=== PATIENT | male | born 1955 | race Caucasian/White ===

== ENCOUNTER → 2018-02-22 11:32 | Outpatient (CLI) | payer MEDICARE, SELFPAY ==
[2018-02-22 12:40] LABS: Hemoglobin A1C% w Est Avg Glu 5.8 % (4.0-6.0)
== END ==
PROVIDERS: PCP Family Medicine; Visit Provider Family Medicine
DX: E34.9 Endocrine disorder, unspecified (principal)
CPT/HCPCS: 36415; 83036; 84403

== ENCOUNTER 2018-07-17 12:54 | Emergency (ER) | payer MEDICARE, SELFPAY ==
[2018-07-17 13:10] VITALS: BP 151/81; PULSE 84; RESP 20; TEMP 37; O2SAT 96; BMI 37.3
--- NOTE | 2018-07-17 13:14 | DI.RAD.S_ITS ---
PROCEDURE: XR ANKLE LT MIN 3V INDICATIONS: injury, pain TECHNIQUE: 3 views of the ankle were acquired. COMPARISON: None. FINDINGS: Bones: No fractures or dislocations. Ankle mortise is normally aligned. No suspicious bony lesions. Soft tissues: No tibiotalar joint effusion. Achilles tendon appears normal. IMPRESSION: 1. No fracture or subluxation. Dictated by: Ismael Molina M.D. on 07/17/2018 at 13:42 Approved by: Ismael Molina M.D. on 07/17/2018 at 13:43
--- NOTE | 2018-07-17 15:20 | ED.LOWEXIN ---
HPI - Extremity Injury (Lower) <BRYAN Anderson - Last Filed: 07/17/18 22:18> General Chief Complaint: Extremity Injury, Lower Stated Complaint: states possible broken left ankle Time Seen by Provider: 07/17/18 14:53 Source: patient Mode of arrival: ambulatory Limitations: no limitations History of Present Illness HPI Narrative: 63-year-old male with history of chronic back pain that is a former smoker here for complaint of left ankle pain. He states that he was carrying a box when he stumbled over another box yesterday. He denies any direct trauma to the ankle. He states that he rolled his ankle while he stumbled. Reports increased pain last night while he was sleeping. He is ambulatory into the emergency room today. He denies any head injury. He denies any other injuries no other concerns or complaints at this timeframe. Related Data Home Medications Medication Instructions Recorded Confirmed MULTIVITAMIN (#THERAPEUTIC 1 cap PO QDAY #0 11/12/10 04/20/18 VITAMINS) Previous Rx's Medication Instructions Recorded bupropion HCl [Wellbutrin SR] 150 mg PO BID #180 tab 04/18/18 sildenafil (antihypertensive) 0 PO PRN #100 tab 05/17/18 [Revatio] testosterone cypionate 400 mg IM SEE INSTRUCTIONS #1 ml 06/06/18 [Depo-Testosterone] levothyroxine 100 mcg PO QAM #90 tab 06/24/18 losartan [Cozaar] 50 mg PO QDAY #90 tab 06/24/18 tamsulosin [Flomax] 0 PO QDAY #180 cap 06/24/18 acyclovir [Zovirax] 200 mg PO 5XD #50 cap 06/28/18 morphine 30 mg immediate release 30 mg PO Q6H PRN #120 tab 07/13/18 tablet morphine ER 60 mg tablet,extended See Label Instructions PO BID #120 07/13/18 release tab Allergies Allergy/AdvReac Type Severity Reaction Status Date / Time adhesive [ADHESIVE] Allergy Intermediate PAPER Verified 04/20/18 14:01 TAPE, RASH diclofenac [DICLOFENAC] Allergy Intermediate RED, ITCHY Verified 04/20/18 14:01 WELT benzalkonium chloride Allergy Mild RASH Verified 04/20/18 14:01 [From MERTHIOLATE (BENZALKONIUM)] tetracaine [TETRACAINE] Allergy Mild RASH Verified 04/20/18 14:01 tranilast [TRANILAST] Allergy Mild RASH Verified 04/20/18 14:01 triamcinolone [TRIAMCINOLONE] Allergy Mild RASH Verified 04/20/18 14:01 DMSO Allergy Mild RASH Uncoded 04/20/18 14:01 Review of Systems <BRYAN Anderson - Last Filed: 07/17/18 22:18> Constitutional Denies chills, Denies fever(s), Denies lethargy and Denies weakness Eyes Denies change in vision, Denies eye discharge, Denies irritation and Denies loss of vision ENT Ears, Nose, Mouth, and Throat: Denies change in voice, Denies neck pain and Denies sore throat Cardiovascular Denies chest pain, Denies irregular heart rhythm, Denies lightheadedness, Denies palpitations, Denies dyspnea, Denies dyspnea on exertion and Denies orthopnea Respiratory Denies cough, Denies dyspnea, Denies dyspnea on exertion and Denies wheezing Gastrointestinal Gastrointestinal: Denies abdominal pain, Denies change in bowel habits, Denies diarrhea, Denies nausea and Denies vomiting Genitourinary Denies hematuria, Denies flank pain, Denies urinary incontinence and Denies urinary urgency Musculoskeletal Denies neck pain Comments: Left ankle pain Integumentary/Breasts Denies pruritus, Denies erythema, Denies rash and Denies wounds Neurologic Denies confusion, Denies loss of vision and Denies weakness Psychiatric Denies anxiety, Denies confusion, Denies depression, Denies homicidal ideation and Denies suicidal ideation Endocrine Denies palpitations Hematologic/Lymphatic Denies easy bruising Allergic/Immunologic Denies wheezing Exam <BRYAN Anderson - Last Filed: 07/17/18 22:18> Initial Vital Signs Initial Vital Signs: Vital Signs Temperature 98.6 F 07/17/18 13:10 Pulse Rate 84 07/17/18 13:10 Respiratory Rate 20 07/17/18 13:10 Blood Pressure 151/81 H 07/17/18 13:10 Pulse Oximetry 96 07/17/18 13:10 Const General: cooperative and well developed Nutritional Appearance: well nourished Orientation: alert, awake, oriented x3 and not confused HENMT Mouth: oral mucosae normal and moist mucous membranes Eyes Conjunctivae: conjunctivae normal Sclera: sclerae normal Pupils: PERRL EOM: EOM intact bilaterally Chest Chest: normal inspection of the chest Resp Effort & Inspection: normal respiratory effort, able to speak in complete sentences, no respiratory distress and no use of accessory muscles Auscultation: clear to auscultation bilaterally, no rales, no rhonchi and no wheezes Cardio Rate: regular rate Rhythm: regular rhythm Heart Sounds: no click, no gallops, no murmurs and no rubs Pulses: normal peripheral pulses Skin General: no rashes or lesions noted, No jaundice and No petechiae Neuro General: alert, oriented x3, gait normal and no focal motor deficits Speech: speech normal Extrem Other: Left ankle with slight swelling. No deformities. Slight abrasion to the anterior portion of the ankle. Distal sensation is intact. Distal pulses are intact. Distal range of motion is intact. <Ching Kelley MD - Last Filed: 07/18/18 14:11> Initial Vital Signs Initial Vital Signs: Vital Signs Temperature 98.6 F 07/17/18 13:10 Pulse Rate 84 07/17/18 13:10 Respiratory Rate 20 07/17/18 13:10 Blood Pressure 151/81 H 07/17/18 13:10 Pulse Oximetry 96 07/17/18 13:10 Course <BRYAN Anderson - Last Filed: 07/17/18 22:18> Orders Ordered: ED Orders 07/17/18 13:14 XR ankle LT min 3V Stat Vital Signs - 8 hr 07/17/18 13:10 Temperature 98.6 F Pulse Rate 84 Respiratory Rate 20 Blood Pressure 151/81 H Pulse Oximetry 96 <Ching Kelley MD - Last Filed: 07/18/18 14:11> Orders Ordered: ED Orders 07/17/18 13:14 XR ankle LT min 3V Stat Vital Signs - 8 hr 07/17/18 13:10 Temperature 98.6 F Pulse Rate 84 Respiratory Rate 20 Blood Pressure 151/81 H Pulse Oximetry 96 MDM - Extremity Injury (Lower) <BRYAN Anderson - Last Filed: 07/17/18 22:18> Imaging Data Left ankle : Radiologist's impression: [address] [address] XRay Report Signed Patient: Avtar Vyas MR#: [id number] : 1955 Acct:[id number] Age/Sex: 63 / M Date of Service: 07/17/18 Loc: ED Accession Number: [id number] Procedure: XR ankle LT min 3V Ordering Provider: Ching Kelley MD PROCEDURE: XR ANKLE LT MIN 3V INDICATIONS: injury, pain TECHNIQUE: 3 views of the ankle were acquired. COMPARISON: None. FINDINGS: Bones: No fractures or dislocations. Ankle mortise is normally aligned. No suspicious bony lesions. Soft tissues: No tibiotalar joint effusion. Achilles tendon appears normal. IMPRESSION: 1. No fracture or subluxation. Dictated by: Ismael Molina M.D. on 07/17/2018 at 13:42 Approved by: Ismael Molina M.D. on 07/17/2018 at 13:43 [facility] Narrative Medical decision making narrative: X-ray the left ankle was obtained was negative for any acute fractures or dislocations. Signs and symptoms presents as sprain to the left ankle. He is placed in a gel splint for comfort and support. [id number]-fopsbef ibuprofen as needed for any discomfort. Ice and elevation help with any swelling. Follow up with primary care provider in 1 week for re-evaluation. For any worsening symptoms return to the emergency room. Discharge Plan Departure Patient Disposition: Home Clinical Impression: Left ankle sprain Discharge Date/Time: 07/17/18 15:41 Interventions: ED Discharge Assessment Last Done: 07/17/18 15:41 Instructions: DI for Ankle Sprain Activity Restrictions/Additional Instructions: X-ray the left ankle was obtained was negative for any acute fractures or dislocations. Signs and symptoms presents as sprain to the left ankle. UR placed in a splint for comfort and support use as directed. Uigu-irs-[id number] ibuprofen as needed for any discomfort. Ice and elevation help with any swelling. Follow up with primary care provider in 1 week for re-evaluation. For any worsening symptoms return to the emergency room. Prescriptions: No Action MULTIVITAMIN (#THERAPEUTIC VITAMINS) 1 cap PO QDAY Qty: 0 RF: 0 bupropion HCl [Wellbutrin SR] 150 mg tablet extended release 12 hr 150 mg PO BID Qty: 180 RF: 1 sildenafil (antihypertensive) [Revatio] 20 mg tablet PO PRN Qty: 100 RF: 5 tamsulosin [Flomax] 0.4 mg capsule PO QDAY Qty: 180 RF: 2 levothyroxine 100 mcg tablet 100 mcg PO QAM Qty: 90 RF: 2 losartan [Cozaar] 50 mg tablet 50 mg PO QDAY Qty: 90 RF: 2 acyclovir [Zovirax] 200 mg capsule 200 mg PO 5XD Qty: 50 RF: 3 morphine 30 mg tablet 30 mg PO Q6H PRN (Reason: pain) Qty: 120 RF: 0 morphine [MS Contin] 60 mg tablet extended release See Label Instructions PO BID Qty: 120 RF: 0 testosterone cypionate [Depo-Testosterone] 200 mg/mL oil 400 mg IM SEE INSTRUCTIONS Qty: 1 RF: 0 Referrals: Chan Covington MD [Primary Care Provider] -
== END 2018-07-17 15:41 | disposition home or self-care (01) ==
PROVIDERS: Emergency Provider Nurse Practitioner Family; PCP Family Medicine
DX: S93.402A Sprain of unspecified ligament of left ankle, initial encounter (principal); W19.XXXA Unspecified fall, initial encounter
CPT/HCPCS: 29540; 73610; 99282; 99283

== ENCOUNTER → 2018-07-27 12:12 | Outpatient (CLI) | payer MEDICARE, SELFPAY | PROVIDERS: PCP Family Medicine; Visit Provider Family Medicine | DX: S91.002A Unspecified open wound, left ankle, initial encounter (principal) | CPT/HCPCS: 87070; 87205 ==

== ENCOUNTER → 2018-08-05 10:23 | Outpatient (CLI) | payer MEDICARE, SELFPAY | PROVIDERS: PCP Family Medicine; Visit Provider Family Medicine | DX: E34.9 Endocrine disorder, unspecified (principal) | CPT/HCPCS: 36415; 84403 ==

== ENCOUNTER → 2018-12-07 14:15 | Outpatient (CLI) | payer MEDICARE, SELFPAY | PROVIDERS: PCP Family Medicine; Visit Provider Family Medicine | DX: E34.9 Endocrine disorder, unspecified (principal) | CPT/HCPCS: 36415; 84403 ==

== ENCOUNTER → 2019-01-10 11:07 | Outpatient (CLI) | payer MEDICARE, SELFPAY ==
[2019-01-10 12:19] LABS: BUN Creatinine Ratio 15.7 (6-22); Blood Urea Nitrogen 11 mg/dL (9-20); Calcium 9.2 mg/dL (8.4-10.2); Carbon Dioxide 32 mmol/L (22-32); Chloride 99 mmol/L (98-107); Cholesterol 167 mg/dL (140-199); Estimated Glomerular Filt Rate > 60.0 mL/min (>60); Glucose 144 mg/dL (80-110); HDL Cholesterol 47 mg/dL (40-60); HEMOLYSIS < 15 (0-50); LDL Cholesterol Calculated 103 mg/dL (<100); Potassium 4.7 mmol/L (3.4-5.1); Sodium 139 mmol/L (137-145); Triglycerides 84 mg/dL (35-150)
== END ==
PROVIDERS: Family Provider Family Medicine; PCP Family Medicine; Visit Provider Internal Medicine Cardiovascular Disease
DX: Z00.00 Encounter for general adult medical examination without abnormal findings (principal); I50.9 Heart failure, unspecified
CPT/HCPCS: 36415; 80048; 80061

== ENCOUNTER → 2019-02-27 15:56 | Outpatient (CLI) | payer MEDICARE, SELFPAY ==
--- NOTE | 2019-02-27 | DI.ECHO.S_ITS ---
[facility] +---------+ : : [address] : : : : [id number] : : : : Phone: [phone] Echocardiogram Report + + :Name: CARROL CHEATHAM Study Date: 02/27/2019 Height: 72 in : :[facility] Weight: 269 lb : : Gender: Male BSA: 2.4 m2 : :: 1955 Age: 64 yrs BP: 154/74 mmHg: :Reason For Study: Congestive Heart Failure : :Ordering Physician: Wendie : :Alesia Casper Performed By: Wanda Perla : :Referring: Dr. Chan Covington : + + Interpretation Summary 1) Nnormal left ventricular size with normal systolic function (EF 50-55%). 2) Grossly, normal right ventricular size with normal systolic function. 3) No significant valvular abnormalities. 4) Compared to the Echo done 01/01/2017, LVEF has improved from 50-55% to 55- 60% on this study. Procedure: A two-dimensional transthoracic echocardiogram with color flow and Doppler was performed. The study quality was technically difficult. 1.5 cc of Definity contrast was used to improve image quality. Comparison is made with the echocardiogram of 01-01-17. The patient was in normal sinus rhythm during the exam. Left Ventricle: The left ventricle is normal in size. There is mild asymmetric left ventricular hypertrophy. The ejection fraction is estimated to be 55-60%. Diastolic parameters suggest a relaxation abnormality of the left ventricle, consistent with probable normal filling pressures. Right Ventricle: The right ventricle grossly appears normal in size with probable normal systolic function. Atria: The left atrium is mildly dilated. Right atrial size is normal. The interatrial septum is intact with no evidence for an atrial septal defect. Mitral Valve: The mitral valve is normal in structure and function. There is trace mitral regurgitation. Aortic Valve: The aortic valve is trileaflet. The aortic valve opens well. There is no aortic valve stenosis. No aortic regurgitation is present. Tricuspid Valve: The tricuspid valve is normal in structure and function. There is a trace or physiologic amount of tricuspid regurgitation. The right ventricular systolic pressure is estimated to be at least 29 mmHg based on an estimated right atrial pressure of 3 mm Hg. Pulmonic Valve: The pulmonic valve is normal in structure and function. There is trace pulmonic regurgitation. Great Vessels: The aortic root is normal size. The ascending aorta is at the upper limits of normal in size. The aortic arch is at the upper limits of normal in size. The IVC is of normal diameter and collapses greater than 50% with a sniff. This suggests a low right atrial pressure of 3 mm Hg. Pericardium/ Pleura There is no pericardial effusion. There is no pleural effusion. MMode/2D Measurements & Calculations LVIDd: 5.3 cm Ao root diam: 3.7 cm LVIDs: 3.7 cm Aortic Jxn: 2.7 cm FS: 30.1 % asc Aorta Diam: 3.9 cm EPSS: 0.60 cm Ao Arch Diam (Prox Trans): 3.5 cm IVSd: 1.2 cm LVPWd: 0.58 cm LV crowell. diameter/BSA (cm/m^2): 2.2 LV sys. diameter/BSA (cm/m^2): 1.5 LA dimension: 4.5 cm RA long axis: 5.7 cm LA A2 area: 27.8 cm2 RA area: 22.7 cm2 LA A4 area: 25.7 cm2 RA vol: 76.6 ml LA length (vol): 5.9 cm RA : 31.7 ml/m2 LA vol: 102.1 ml IVC diam: 1.5 cm LA vol index: 42.3 ml/m2 RVDd major: 7.2 cm RVD1 (basal): 3.6 cm RVD2 (mid): 2.5 cm Doppler Measurements & Calculations Ao V2 max: 156.6 cm/sec MV E max troy: 78.6 cm/sec Ao V2 mean: 101.0 cm/sec MV A max troy: 83.2 cm/sec Ao max P.8 mmHg MV E/A: 0.94 Ao mean P.7 mmHg Med Peak E' Troy: 6.3 cm/sec Ao V2 VTI: 34.2 cm E/E' med: 12.4 Lat Peak E' Troy: 8.6 cm/sec E/E' lat: 9.1 E/e' average: 10.8 MV dec time: 0.19 sec MV P1/2t: 56.2 msec TR max troy: 256.2 cm/sec MV P1/2t max troy: 78.2 cm/sec TR max P.2 mmHg MVA(P1/2t): 3.9 cm2 PA V2 max: 101.6 cm/sec PA V2 mean: 63.1 cm/sec PA mean P.0 mmHg PA Accel Time: 0.14 sec Reading Physician:05:27 PM
== END ==
PROVIDERS: Family Provider Family Medicine; PCP Family Medicine; Visit Provider Internal Medicine Cardiovascular Disease
DX: I50.9 Heart failure, unspecified (principal); I34.0 Nonrheumatic mitral (valve) insufficiency; I07.1 Rheumatic tricuspid insufficiency; I37.1 Nonrheumatic pulmonary valve insufficiency
CPT/HCPCS: 93306; Q9957

== ENCOUNTER → 2019-03-20 12:30 | Outpatient (CLI) | payer MEDICARE, SELFPAY ==
[2019-03-20 15:19] LABS: Prostate Specific Antigen Scrn 0.636 ng/mL (0.1-4.0)
== END ==
PROVIDERS: Family Provider Family Medicine; PCP Family Medicine; Visit Provider Family Medicine
DX: E34.9 Endocrine disorder, unspecified (principal); Z12.5 Encounter for screening for malignant neoplasm of prostate
CPT/HCPCS: 36415; 84403; G0103

== ENCOUNTER → 2019-04-04 11:44 | Outpatient (CLI) | payer MEDICARE, SELFPAY ==
--- NOTE | 2019-04-04 11:47 | DI.US.S_ITS ---
PROCEDURE: US ABDOMEN COMPLETE INDICATIONS: ABD PAIN, N/V, HX LAPBAND TECHNIQUE: Real-time scanning was performed of the abdominal and retroperitoneal organs, with image documentation. COMPARISON: [facility], CT, PE STUDY (CTA CHEST), 11/18/2010, 19:54. FINDINGS: Liver: Liver is normal in size and demonstrates coarse echotexture. There are numerous masses in liver with hypoechoic halo. Gallbladder: There is a 3 cm gallstone and gallbladder sludge. No gallbladder wall thickening, pericholecystic fluid or sonographic Pichardo's sign. Biliary ducts: Intrahepatic bile ducts are non-dilated. Extrahepatic bile duct caliber measures 3.6 mm. Normal is 6-7 mm or less in diameter, or 10 mm or less post-cholecystectomy. Pancreas: Not well-visualized due to overlying bowel gas. Spleen: Spleen is normal in size and homogeneous in echotexture. Kidneys: Kidneys are normal in size and echotexture. Right kidney measures 13.5 cm long; left kidney measures 14.1 cm long. No hydronephrosis or nephrolithiasis. No solid masses. Aorta: Visualized aorta is normal in caliber at less than 3 cm. Iliacs: Proximal common iliac arteries are normal in caliber at less than 2.5 cm. IVC: Intrahepatic inferior vena cava is patent. Miscellaneous: No free abdominal fluid. IMPRESSION: 1. There are multiple masses in liver with hypoechoic halo concerning for metastatic disease. Recommend CT with contrast for further evaluation. 2. Liver demonstrates coarse echotexture. This finding may be secondary to chronic liver disease such as hepatitis. Recommend clinical correlation. 3. Cholelithiasis. No ultrasound finding to suggest acute cholecystitis. The preliminary result was connected to [facility] by respiratory therapist assistant. Dictated by: Santa Odom M.D. on 04/04/2019 at 12:40 Approved by: Santa Odom M.D. on 04/04/2019 at 12:48
[2019-04-04 13:38] LABS: Hematocrit 50.5 % (41-53); Hemoglobin 16.7 g/dL (13.5-17.5); Mean Corpuscular HGB Conc 33.1 % (30-36); Mean Corpuscular Hemoglobin 28.1 PG (26-34); Mean Corpuscular Volume 84.9 fL (80-100); Platelet Count 225 X10^3/uL (150-400); Red Blood Cell Count 5.95 X10^6/uL (4.5-5.9); White Blood Cell Count 8.2 X10^3/uL (4.5-11.0)
[2019-04-04 14:04] LABS: Alanine Aminotransferase 28 IU/L (21-72); Albumin 4.1 g/dL (3.5-5.0); Albumin Globulin Ratio 1.5 (1.0-2.8); Alkaline Phosphatase 64 U/L (38-126); Amylase 51 U/L (30-110); Aspartate Aminotransferase 28 IU/L (17-59); BUN Creatinine Ratio 14.3 (6-22); Blood Urea Nitrogen 10 mg/dL (9-20); Calcium 9.5 mg/dL (8.4-10.2); Carbon Dioxide 25 mmol/L (22-32); Chloride 100 mmol/L (98-107); Estimated Glomerular Filt Rate > 60.0 mL/min (>60); Globulin 2.8 g/dL (1.7-4.1); Glucose 124 mg/dL (80-110); HEMOLYSIS < 15 (0-50); Lipase 36 U/L (23-300); Potassium 4.6 mmol/L (3.4-5.1); Sodium 137 mmol/L (137-145); Total Protein 6.9 g/dL (6.3-8.2)
== END ==
PROVIDERS: Family Provider Family Medicine; PCP Family Medicine; Visit Provider Nurse Practitioner Family
DX: R10.12 Left upper quadrant pain (principal); R16.0 Hepatomegaly, not elsewhere classified; R11.2 Nausea with vomiting, unspecified; K80.20 Calculus of gallbladder without cholecystitis without obstruction; K82.8 Other specified diseases of gallbladder; Z98.84 Bariatric surgery status
CPT/HCPCS: 36415; 76700; 80053; 82150; 83690; 85027

== ENCOUNTER → 2019-04-05 09:03 | Outpatient (CLI) | payer MEDICARE, SELFPAY ==
--- NOTE | 2019-04-05 09:06 | DI.CT.S_ITS ---
PROCEDURE: CT ABDOMEN WO/W CON INDICATIONS: abnormal ultrasound OF THE LIVER TECHNIQUE: 4 phase scanning was performed. Non-contrast 5 mm axial sections acquired from the diaphragm to the iliac crests. Following the administration of intravenous contrast, 5 mm thick arterial-phase, portal venous-phase, and 5-minute delayed phase images were acquired through the liver. 5 mm thick coronal and sagittal reformats were performed. For radiation dose reduction, the following was used: automated exposure control, adjustment of mA and/or kV according to patient size. COMPARISON: None. FINDINGS: Image quality: Excellent. Lung bases: Subsolid pulmonary nodule, extreme right lung base, measuring 2.6 cm. Lung bases are otherwise clear. Heart size is normal. Liver: Multiple hepatic metastatic lesions identified. The 2 largest lesions are as follows: Image 15/5 and 34/7: 3.6 cm left lobe lesion near the dome of the liver. Image 38/5 and image 30/7: 2.3 cm posterior segment right lobe liver lesion. There are at least 8 metastatic liver lesions. Other solid organs: Gallbladder contains a gallstone. Biliary system is non dilated. Hypoattenuating mass centered in the body/tail of the pancreas measures approximately 6.5 x 4.6 cm, encasing the splenic artery. Spleen is normal in size and enhancement. No adrenal nodules. Both kidneys demonstrate normal size and enhancement, without hydronephrosis or nephrolithiasis. Nodes and vessels: No retroperitoneal or mesenteric adenopathy by size criteria. Aorta and inferior vena cava are normal in size. Perisplenic varices suggests that the splenic vein is likely occluded by the pancreatic mass. Bowel and peritoneum: Laparoscopic banding procedure noted. Mass involving the right posterior wall of the stomach, possibly a serosal implant, measures approximately 5.3 x 3.7 cm. Reference image 23/3 and image 36/4. Unenhanced bowel loops are normal in caliber. No free fluid or air. Bones: No suspicious bony lesions. No vertebral body compression fractures. Remote lower lumbar fusion surgery noted. Miscellaneous: No ventral hernias. IMPRESSION: 1. Constellation of findings are consistent with locally invasive and metastatic pancreatic carcinoma. There is a 6.5 x 4.6 cm pancreatic body/tail mass. There is a mass involving the posterior wall of the stomach, which likely represents contiguous extension. There are at least 8 hepatic metastatic lesions. 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 2. Incidental note made of 2.6 cm Subsolid pulmonary nodule in the extreme right lung base. 3. Cholelithiasis. Dictated by: Low Soto M.D. on 04/05/2019 at 9:45 Approved by: Low Soto M.D. on 04/05/2019 at 10:02
== END ==
PROVIDERS: Family Provider Family Medicine; PCP Family Medicine; Visit Provider Nurse Practitioner Family
DX: C25.8 Malignant neoplasm of overlapping sites of pancreas (principal); C78.7 Secondary malignant neoplasm of liver and intrahepatic bile duct; R91.1 Solitary pulmonary nodule; K31.9 Disease of stomach and duodenum, unspecified; K80.20 Calculus of gallbladder without cholecystitis without obstruction; R93.5 Abnormal findings on diagnostic imaging of other abdominal regions, including retroperitoneum
CPT/HCPCS: 74170; Q9967

== ENCOUNTER → 2019-04-12 10:01 | Outpatient (CLI) | payer MEDICARE, SELFPAY ==
--- NOTE | 2019-04-12 10:27 | DI.CT.S_ITS ---
PROCEDURE: CT CHEST ABD PEL W CON INDICATIONS: pancreatic cancer staging TECHNIQUE: After the administration of oral and intravenous contrast, 5 mm thick sections acquired from the lung apices to the symphysis. 5 mm coronal and sagittal reformats were performed, with additional 7 mm coronal MIP reformats through the lungs. For radiation dose reduction, the following was used: automated exposure control, adjustment of mA and/or kV according to patient size. COMPARISON: [facility], [place], BONE SCAN WHOLE BODY, 01/29/2016, 14:16. [facility], CT, PE STUDY (CTA CHEST), 11/18/2010, 19:54. [facility], CT, CT ABDOMEN WO/W CON, 04/05/2019, 9:05. FINDINGS: Image quality: Excellent. CHEST: Lungs and pleura: There are couple of groundglass nodules in the right lower lobe. The larger lesion measures 2.7 cm and demonstrates a halo. The smaller lesion measures 7 mm. No acute airspace opacities. No pleural effusions or pneumothorax. Central and peripheral airways appear patent and normal in caliber. Mediastinum: Heart size is normal. No pericardial effusion. Coronary artery calcifications consistent with arthrosclerosis. There is a 1.1 x 1.3 cm right periesophageal lymph node in the azygoesophageal recess.. Thoracic aorta and central pulmonary arteries are normal in size. Esophagus is normal in caliber. Small hiatal hernia. Chest wall: No axillary or supraclavicular adenopathy by size criteria. Thyroid gland is normal. ABDOMEN: Solid organs: There is a large mass in the pancreatic tail measuring 5.2 x 6.9 x 3.7 cm. A second mass is seen directly above this mass measuring 3.4 x 3.3 x 6.4 cm involving the inferior wall of the lesser curvature of the stomach. There is encasement of the splenic artery and vein. 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 No direct tumor contact to the celiac trunk, superior pericardial artery. There are multiple hepatic masses as seen on the last CT. The largest lesion is in the posterior hepatic dome measuring 3.0 x 3.7 cm. Multiple other lesions are seen in the right hepatic lobe involving both the anterior and posterior segments. There are also couple of masses in caudate lobe. There is no intrahepatic biliary dilation. Gallbladder contains gallstones. Biliary system is non dilated. Spleen is normal in size and enhancement. No adrenal nodules. Kidneys demonstrate normal size and enhancement, without hydronephrosis. Peritoneum and bowel: There is gastric banding. A small hiatal hernia is noted. As noted there is a large mass involving the inferior wall of the stomach along the lesser curvature. Bowel loops demonstrate normal wall thickness and caliber. No free fluid or air. Nodes and vessels: There is a 1.7 x 2.1 cm lymph node left of the celiac trunk. Smaller celiac lymph nodes are seen. The finding is compatible with mai metastasis. Aorta and inferior vena cava are normal in size. Miscellaneous: No ventral hernias. PELVIS: Genitourinary: Bladder wall thickness is normal. Miscellaneous: No inguinal hernias or adenopathy. Bones: There is mixed lucent and sclerotic appearance of the left iliac bone adjacent to the sacroiliac joint. No vertebral body compression fractures. IMPRESSION: 1. A large pancreatic mass involving the pancreatic tail compatible with primary pancreatic cancer. 2. A mass involving the inferior wall of stomach invading into the stenotic lumen, most likely secondary to direct tumor invasion. 3. Multiple hepatic masses consistent with liver metastases. 4. Suspect metastatic celiac lymph nodes. 5. There is encasement of the splenic artery and vein. 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 6. A couple of other nodules in the right lower lobe, suspicious for pulmonary metastasis. 7. Mixed lucent and sclerotic appearance in the left iliac bone adjacent to the sacroiliac joint. Cannot rule out metastasis. Bone scan is suggested for further evaluation. 8. Cholelithiasis. Dictated by: Santa Odom M.D. on 04/12/2019 at 12:40 Approved by: Santa Odom M.D. on 04/12/2019 at 13:17
== END ==
PROVIDERS: Family Provider Family Medicine; PCP Family Medicine; Visit Provider Internal Medicine Hematology & Oncology
DX: C25.9 Malignant neoplasm of pancreas, unspecified (principal); K31.9 Disease of stomach and duodenum, unspecified; R16.0 Hepatomegaly, not elsewhere classified; R91.8 Other nonspecific abnormal finding of lung field; I82.890 Acute embolism and thrombosis of other specified veins; K80.20 Calculus of gallbladder without cholecystitis without obstruction
CPT/HCPCS: 71260; 74177; Q9967

== ENCOUNTER → 2019-04-19 10:44 | Outpatient (CLI) | payer MEDICARE, SELFPAY ==
[2019-04-19 11:14] LABS: Add Manual Diff / Slide Review NO; Basophils Absolute Auto 0 /uL (0-100); Basophils Percent Auto 0.3 % (0-2); Eosinophils Absolute Auto 800 /uL (0-450); Eosinophils Percent Auto 8.7 % (2-4); Hematocrit 49.4 % (41-53); Hemoglobin 16.3 g/dL (13.5-17.5); Lymphocytes Absolute Auto 1100 /uL (1100-4500); Lymphocytes Percent Auto 12.6 % (25-40); Mean Corpuscular HGB Conc 32.9 % (30-36); Mean Corpuscular Hemoglobin 27.8 PG (26-34); Mean Corpuscular Volume 84.4 fL (80-100); Monocytes Absolute Auto 1000 /uL (0-900); Monocytes Percent Auto 11.6 % (3-14); Neutrophils Absolute Auto 5900 /uL (1500-7000); Neutrophils Percent Auto 66.8 % (50-75); Platelet Count 244 X10^3/uL (150-400); Red Blood Cell Count 5.86 X10^6/uL (4.5-5.9); Red Cell Distribution Width 13.2 % (11.6-14.8); White Blood Cell Count 8.8 X10^3/uL (4.5-11.0)
[2019-04-19 11:25] LABS: Alanine Aminotransferase 17 IU/L (21-72); Albumin 4.2 g/dL (3.5-5.0); Albumin Globulin Ratio 1.3 (1.0-2.8); Alkaline Phosphatase 74 U/L (38-126); Aspartate Aminotransferase 25 IU/L (17-59); BUN Creatinine Ratio 15.7 (6-22); Bilirubin Total 0.7 mg/dL (0.2-1.3); Blood Urea Nitrogen 11 mg/dL (9-20); Calcium 9.6 mg/dL (8.4-10.2); Carbon Dioxide 30 mmol/L (22-32); Chloride 98 mmol/L (98-107); Estimated Glomerular Filt Rate > 60.0 mL/min (>60); Globulin 3.2 g/dL (1.7-4.1); Glucose 127 mg/dL (80-110); HEMOLYSIS < 15 (0-50); Lactate Dehydrogenase 390 U/L (313-618); Potassium 4.7 mmol/L (3.4-5.1); Sodium 137 mmol/L (137-145); Total Protein 7.4 g/dL (6.3-8.2)
[2019-04-19 12:20] LABS: INR 1.1 (0.9-1.3); Prothrombin Time 12.4 SECONDS (10.1-12.7)
[2019-04-19 13:08] VITALS: BP 147/97; PULSE 81; RESP 16; O2SAT 98
[2019-04-19 13:17] VITALS: BP 115/51; PULSE 82; RESP 16; O2SAT 99
--- NOTE | 2019-04-19 13:21 | DI.CT.S_ITS ---
PROCEDURE: CT BIOPSY LIVER Sedation analgesia for approximately 15 minutes. INDICATIONS: pancreatic cancer TECHNIQUE: The indications, alternatives, benefits, risks, and possible complications of the procedure were communicated to the patient. Informed written consent from the patient was obtained and placed in the chart. Continuous EKG and hemodynamic monitoring was started by trained personnel. The patient was brought to the CT suite and buttonholer spiral CT imaging was performed with localization grid. The appropriate site for percutaneous access to the biopsy target was marked, was prepped and draped sterilely, and was infused with local anaesthesia. Under CT guidance, a core biopsy trocar and needle set was advanced to the biopsy target, and specimen(s) were obtained. The trocar and needle were then removed, and the patient was sent for post-procedure monitoring. COMPARISON: None. FINDINGS: Biopsy site: Right lobe of the liver Needle: 20 gauge biopsy needle with introducer trocar. Number of passes: 3 Medications: 1% lidocaine for local anaesthesia. IV Fentanyl and Versed for conscious sedation for 15 minutes (see nursing record). Complications: None. IMPRESSION: Successful CT-guided biopsy of right hepatic lobe mass. Dictated by: Arron Samuel M.D. on 04/19/2019 at 14:38 Approved by: Arron Samuel M.D. on 04/19/2019 at 14:41
[2019-04-19 13:23] VITALS: BP 125/68; PULSE 80; RESP 14; O2SAT 39
[2019-04-19 13:28] VITALS: BP 135/60; PULSE 78; RESP 14; O2SAT 98
[2019-04-19 13:32] VITALS: BP 111/63; PULSE 80; RESP 14; O2SAT 99
[2019-04-19 13:37] VITALS: BP 138/77; PULSE 85; RESP 16; O2SAT 97
[2019-04-19] MEDS: fentaNYL 100 MCG/2 ML INJ 50 MCG IV (13:51)
[2019-04-19] MEDS: MIDAZOLAM 2 MG/2 ML VIAL 1 MG IV (13:52)
[2019-04-21 18:41] LABS: Cancer (Carbohydrate) Ag 19-9 8 U/mL (< 34)
== END ==
PROVIDERS: PCP Family Medicine; Visit Provider Internal Medicine Hematology & Oncology
DX: C25.9 Malignant neoplasm of pancreas, unspecified (principal); R16.0 Hepatomegaly, not elsewhere classified
CPT/HCPCS: 36415; 47000; 77012; 80053; 82378; 83615; 84153; 85025; 85610; 86301; J2250; J3010

== ENCOUNTER 2019-04-19 10:48 | Day surgery (SDC) | payer MEDICARE, SELFPAY ==
[2019-04-19] VITALS (11 sets, daily range): BP systolic 97–143; BP diastolic 65–86; PULSE 80–102; RESP 15–18; TEMP 36.2–36.4; O2SAT 18–97; BMI 31.8
--- NOTE | 2019-04-19 | PATH_ITS ---
[facility] Accession Number: [id number] . 01 Material submitted: . liver - R LIVER LOBE MASS . 01 Clinical history: . CT GUIDED NEEDLE BIOPSY X3 . 02 Diagnosis: Right Liver Lobe Mass, Needle Core Biopsies: Liver parenchyma with features of cholate stasis; please see comment. No evidence of neoplasm. MRV 04/24/2019 1354 Local . 02 Comment: Sections are of liver parenchyma with mild to moderate portal inflammation consisting of predominantly lymphocytes and neutrophils with readily identifiable eosinophils. Florid bile ductular reaction is present. Intracannicular and interhepatocytic bile stasis is seen. Additionally, the sinuoids appear dilated. A reticulin stain highlights an intact reticulin meshwork. Numerous deeper levels are examined. . The clinical history of pancreatic cancer and a right liver mass on imaging are noted. The findings in this case are suggestive of cholate stasis. Though nonspecific, these finding could be explained by an adjacent unsampled mass; however, other etiologies including drug-induced injury remain on the differential. If clinical suspicion for a neoplasm persists, repeat biopsy may be contributory. . As part of routine quality assurance supervisor trim, Dr. Theodore has reviewed the H/E slides from this case and agrees there is no evidence of neoplasm. . 02 Electronically signed: . Jose Roberto Hurt MD, PhD, Pathologist NPI- [id number] . 01 Gross description: . R LIVER LOBE MASS: Received in formalin are multiple fragment(s) of monroy, soft tissue measuring 0.1 x 0.1 x 0.1 cm to 0.8 x 0.1 x 0.1 cm which is entirely submitted and submitted entirely in 1 cassette(s) /[facility] [place] [facility] 04/19/2019 2124 Local . 02 Microscopic: . A reticulin stain highlights a predominantly preserved reticulin meshwork without features of expansion or compression of liver parenchyma. A control stain shows appropriate reactivity. . 02 Pathologist provided ICD-10: R93.2 . 02 CPT . 390488, [id number] Performed at: 01 [facility] [address] [id number] MD Ismael Block MD Phone: [phone] Performed at: 02 [place] [id number] [place] [id number] MD Malini Theodore MD Phone: [phone]
[2019-04-19] MEDS: MORPHINE IR 30 MG PO (14:25)
[2019-04-19 16:36] LABS: Hematocrit 50.2 % (41-53)
--- NOTE | 2019-04-19 17:06 | SUR.PHASEII ---
RECEIVED REPORT FROM JOANNA VEGA, PT AND WAITING ON OK FROM RADIOLOGIST TO GO HOME, PT DENIES ANY PAIN OR DISCOMFORT, BAND AID/DRESSING REMAINS DRY AND INTACT.
--- NOTE | 2019-04-19 17:28 | SUR.PHASEII ---
EULALIO RN IN TO SEE PT, PER DR WILSON, PT MAY BE D/C. VSS, DRESSING REMAINS DRY AND INTACT, PT DENIES ANY PAIN OR DISCOMFORT. PT HOME WITH
== END 2019-04-19 17:28 | disposition home or self-care (01) ==
LOC: OR 10:50
PROVIDERS: Radiology Diagnostic Radiology; PCP Family Medicine
PROC: BF25ZZZ Computerized Tomography (CT Scan) of Liver (ICD-10-PCS; CPT 47000; principal; 2019-04-19 12:00)
DX: R93.2 Abnormal findings on diagnostic imaging of liver and biliary tract (principal); R16.0 Hepatomegaly, not elsewhere classified; C25.9 Malignant neoplasm of pancreas, unspecified
CPT/HCPCS: 36415; 47000; 77012; 80053; 82378; 83615; 84153; 85014; 85025; 85610; 86301; 88307; 88313; J2250; J3010

== ENCOUNTER 2019-04-27 12:58 | Day surgery (SDC) | payer MEDICARE, SELFPAY ==
--- NOTE | 2019-04-27 | PATH_ITS ---
[facility] Accession Number: [id number] . 01 Material submitted: . PART A: gastrointestinal site - GASTRIC BIOPSIES PART B: gastrointestinal site - GASTRIC MASS . 01 Clinical history: . MALIGNANT NEOPLASM OF PANCREAS, UNSPECIFIED . 02 Diagnosis: A. Stomach, Biopsies: Gastric body mucosa with no diagnostic abnormality. No evidence of Helicobacter organisms on H/E stain. Negative for intestinal metaplasia, dysplasia or malignancy. . B. Gastric Mass, Biopsy: Gastric body mucosa with features of reactive gastropathy and focal dilated pits, suggestive of fundic gland polyp. Please see comment. No evidence of Helicobacter organisms on H/E stain. Negative for intestinal metaplasia, dysplasia or malignancy. Additional step sections examined. MRV 05/02/2019 1052 Local . 02 Comment: The endoscopic impression of a gastric mass is noted; however, there are no histologic features that explain a mass. The changes seen in this biopsy are mild, and could be consistent with a fundic gland polyp. There is no evidence of dysplasia or malignancy. . As part of routine quality assurance associate, Dr. Theodore has reviewed part B of this case and agrees with the above interpretation. . 02 Electronically signed: . Jose Roberto Hurt MD, PhD, Pathologist NPI- [id number] . 01 Gross description: . Part A: GASTRIC BIOPSIES: Received in formalin is 1 fragment(s) of monroy, soft tissue measuring 0.4 x 0.2 x 0.2 cm which is entirely submitted and submitted entirely in 1 cassette(s) Part B: GASTRIC MASS: Received in formalin is 2 fragment(s) of monroy, soft tissue measuring 0.1 x 0.1 x 0.1 cm to 0.3 x 0.2 x 0.2 cm which is entirely submitted and submitted entirely in 1 cassette(s) /[facility] 04/27/2019 2041 Local . 02 Pathologist provided ICD-10: K31.9 . 02 CPT . 565711, [id number] Performed at: 01 [facility] [address] [place] [address], [place], [place] [id number] MD Ismael Block MD Phone: [phone] Performed at: 02 [facility] [address] [place], [place] [id number] MD Malini Theodore MD Phone: [phone]
[2019-04-27 13:24] VITALS: BMI 31.8
[2019-04-27 13:36] VITALS: BP 134/83; PULSE 98; RESP 15; TEMP 36.6; O2SAT 96
[2019-04-27 13:41] VITALS: BMI 31.8
[2019-04-27 13:42] VITALS: BMI 31.8
--- NOTE | 2019-04-27 13:42 | PM.HP.1 ---
History of Present Illness History of Present Illness Date Patient Seen: 04/27/19 Time Patient Seen: 14:08 Chief complaint: [id number] Narrative: 64-year-old male with a complex mass involving his stomach pancreas and the liver. He comes today for diagnostic EGD colonoscopy. He has never had a previous colonoscopy or upper endoscopy. His history is significant for a gastric band. Patient History Medical History Abnormal ultrasound of abdomen (Acute) Gallstone (Acute) History of atrial flutter (Acute) Hypertension (Acute) Surgical History History of cardiac radiofrequency ablation (Acute) History of knee replacement (Resolved 11/12/10) History of laparoscopic adjustable gastric banding (Acute) Status post gastric banding surgery (Resolved) Status post laminectomy (Resolved 1991) Family History (Updated 04/25/18 @ 09:59 by Rakel Benavides) Brother Bipolar disorder Father CVA (cerebral vascular accident) Diabetes mellitus Mother Diabetes mellitus Colitis Social History household members: spouse Smoking Status: Former smoker (quitted 35 years ago. ) alcohol intake: never substance use type: does not use Family & Social History Family History Brother Bipolar disorder Father CVA (cerebral vascular accident) Diabetes mellitus Mother Diabetes mellitus Colitis Social History: household members spouse Tobacco & Substance use: Smoking Status Former smoker alcohol intake never Substance Use Type does not use Meds Home Medications and Allergies Home Medications Medication Instructions Recorded Confirmed Type ujtvkxuw-opg-GE-lycopen-lutein 1 tab PO DAILY #0 11/12/10 04/27/19 History [Centrum Silver Ultra Men's] bupropion HCl 150 mg tablet,12 hr 150 mg PO BID #180 tab 02/01/19 04/27/19 Rx sustained-release levothyroxine 100 mcg PO QAM #90 tab 02/01/19 04/27/19 Rx losartan [Cozaar] 50 mg PO QDAY #90 tab 02/01/19 04/27/19 Rx morphine 60 mg tablet,extended See Rx Instructions .ROUTE 04/03/19 04/27/19 Rx release .COMPLEX #120 tablet tamsulosin [Flomax] 0.4 mg PO QDAY 04/10/19 04/24/19 History acyclovir 200 mg capsule 200 mg PO DAILY #90 cap 04/14/19 04/27/19 Rx testosterone cypionate 200 mg/mL 350 mg IM Q2W #1 ml 04/17/19 04/24/19 Rx intramuscular oil morphine 30 mg PO Q4-6H PRN 04/19/19 04/27/19 History sildenafil (antihypertensive) 20 mg PO PRN PRN 04/19/19 04/27/19 History [Revatio] Allergies Allergy/AdvReac Type Severity Reaction Status Date / Time adhesive [ADHESIVE] Allergy Intermediate PAPER Verified 04/19/19 12:19 TAPE, RASH diclofenac [DICLOFENAC] Allergy Intermediate RED, ITCHY Verified 04/19/19 12:19 WELT benzalkonium chloride Allergy Mild RASH Verified 04/19/19 12:19 [From MERTHIOLATE (BENZALKONIUM)] tetracaine [TETRACAINE] Allergy Mild RASH Verified 04/19/19 12:19 tranilast [TRANILAST] Allergy Mild RASH Verified 04/19/19 12:19 triamcinolone [TRIAMCINOLONE] Allergy Mild RASH Verified 04/19/19 12:19 DMSO Allergy Mild RASH Uncoded 04/04/19 08:39 Review of Systems Review of Systems ROS Unobtainable: All systems reviewed & are unremarkable except as noted in HPI and below Exam Vital Signs (past 8 hours): - 04/27/19 13:36 Temperature 97.8 F Pulse Rate 98 H Respiratory Rate 15 Blood Pressure 134/83 Pulse Oximetry 96 Narrative Exam Narrative: General-no acute distress, well nourished HEENT-moist mucous membranes, no scleral icterus Neck-supple, no lymphadenopathy Chest- non labored respirations, clear to auscultation bilaterally Cardiac-regular rate no peripheral edema Abdomen-soft, nontender, non distended Extremities-warm, well perfused Neurological-alert and oriented, no focal deficits Assessment & Plan Assessment & Plan narrative: 64-year-old male with complex mass involving stomach liver pancreas. He is here for diagnostic EGD colonoscopy. Discussed the risks of the procedure which include bleeding infection perforation missed diagnosis. Questions are answered and he is in agreement with this plan.
[2019-04-27] MEDS: LIDOCAINE 4% SOLN 50 ML 20 ML TOP (15:03)
[2019-04-27] MEDS: fentaNYL 250 MCG/5 ML INJ IV (15:03)
[2019-04-27] MEDS: MIDAZOLAM 5 MG/5 ML VIAL IV (15:04)
[2019-04-27 15:08] VITALS: BP 125/77; PULSE 89; RESP 18; TEMP 37.7; O2SAT 93
[2019-04-27 15:11] VITALS: BP 122/77; PULSE 88; RESP 18; O2SAT 92
[2019-04-27 15:16] VITALS: BP 118/74; PULSE 87; RESP 91; O2SAT 19
[2019-04-27 15:27] VITALS: BP 112/68; PULSE 91; RESP 23; O2SAT 95
[2019-04-27 16:38] VITALS: BP 118/74; PULSE 88; RESP 21; TEMP 36.6; O2SAT 97
--- NOTE | 2019-04-27 16:43 | SUR.PHASEII ---
PIV D/C'D CATHETER TIP INTACT, SITE WITHOUT REDNESS OR SWELLING. DR HOLM IN TO SPEAK WITH PT AND , D/C INSTRUCTIONS REVIEWED WITH VERBALIZED UNDERSTANDING
--- NOTE | 2019-04-27 22:34 | PM.OP.ENDO ---
Operative Date/Time/Diagnoses Date of procedure: 04/27/19 Time of procedure: 22:34 Pre-op diagnosis: gastric and pancreatic mass Post-op diagnosis: same Procedure & Clinicians Study performed: Esophagoduodenoscopy Colonoscopy Same procedure as scheduled: Yes Indications: This is a 64-year-old male who has a complex mass involving the stomach pancreas and liver lesions. He has no previous colonoscopy and upper endoscopy he is here for diagnostic studies Surgeon: Steve Haq Procedure Notes SCOAP/Timeout: Performed Procedure in detail: The patient was placed in the left lateral decubitus position. Time-out was performed ensure the correct patient procedure necessary equipment within the room. Sedation was provided with Versed and fentanyl. Bite block was placed. The endoscope was carefully inserted into the mouth advanced over the tongue and down the esophagus. The stomach was entered and insufflated. The stomach was notable for the presence of old blood. The pylorus was intubated and the duodenum was normal in its appearance. The scope was then retroflexed in the was an obvious gastric mass at the cardia. Mass appeared to be several cm was friable in its appearance. Biopsy as well as snare electrocautery was used to remove a portion of the mass for pathological review. Inspection was made of the mass for hemostasis. The scope was then withdrawn into the esophagus and the Z-line was identified and was without evidence of West's or esophagitis. A rectal exam demonstrated no external hemorrhoids no internal masses. Colonoscopy scope was placed into the rectum and advanced through the colon to the cecum. The ileocecal valve was identified. The quality of the prep was poor. The scope was then slowly withdrawn examining colon thoroughly in all directions. The colonoscopy was grossly normal there were no obvious masses although visibility was considerably restricted secondary to the poor prep. The rectum was desufflated and the scope removed. Patient tolerated procedure well. Scope withdrawal time: 8 Sedation minutes: 34 Findings: other findings (gastric mass) Specimen(s): other (gastric mass) Complications: none Impression: gastric mass Post-procedure Recommendations: Start medication(s) (protonix) Disposition: same day surgery
== END 2019-04-27 16:37 | disposition home or self-care (01) ==
PROVIDERS: PCP Family Medicine; Visit Provider Surgery
PROC: 0DJ08ZZ Inspection of Upper Intestinal Tract, Via Natural or Artificial Opening Endoscopic (ICD-10-PCS; CPT 43235; principal; 2019-04-27 14:30)
PROC: 0DJD8ZZ Inspection of Lower Intestinal Tract, Via Natural or Artificial Opening Endoscopic (ICD-10-PCS; CPT 45378; 2019-04-27 14:30)
PROC: (CPT 43251; 2019-04-27 14:30)
DX: R10.32 Left lower quadrant pain (principal); K31.9 Disease of stomach and duodenum, unspecified
CPT/HCPCS: 43251; 45378; 43239; 88305; 99152; 99153; J2250; J3010

== ENCOUNTER → 2019-05-08 10:20 | Oncology outpatient (ONC) | payer MEDICARE, SELFPAY ==
[2019-04-10 11:10] VITALS: BP 131/83; PULSE 78; RESP 20; TEMP 36.9; O2SAT 98
--- NOTE | 2019-04-10 11:33 | ONC.CONS ---
History of Present Illness - Data of Consult Patient: new to practice Consult date: 04/10/19 Requesting Physician: Chan Covington MD Primary Care Provider: Chan Covington MD - Consult Narrative Reason for consult: Metastatic pancreatic cancer Narrative: Avtar Vyas is a 64 year old male. He had a history of morbid obesity and underwent laparoscopic banding in 2005. His weight decreased from 360 prior to the surgery to 240 after the surgery. Then his weight has gradually went up to 275 until about a month ago when he noticed weight loss again. He thought that probably is due to the laparoscopic banding. He was having problems eating. Sometimes could not get things down. Patient is complaining epigastric pain with radiating right straight to the back. The pain is about 5 to 6/10 in severity. For the past 1 month, patient lost about 15-20 lb. He was seen by Dr. Covington. On 04/04/2019 patient underwent abdominal complete ultrasound study. The study showed numerous masses in liver with hypoechoic halo, a 3 cm gallstone and gallbladder sludge. Pancreas was not well visualized due to overlying bowel gas. Spleen is in normal size. On 04/05/2019, he underwent CT abdomen wo/w contrast that showed a 6.5 x 4.6 cm pancreatic body/tail mass, a mass involving the posterior wall of the stomach which likely represents contiguous extension, and at least 8 hepatic metastatic lesions. 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 Incidental note was made of 2.6 cm sub solid pulmonary nodule in the extreme right lung base. In addition cholelithiasis was also noted. He denies headache, shortness of breath. The lower sternum and upper epigastric pain was worse when lies down. No hip pain. No femur pain. Normal bowel movement. He is a little fatigued. Overall he said it is good. He went to [facility] for the past weekend CC: Shirin Guallpa MD Home Medications and Allergies Home Medications Medication Instructions Recorded Confirmed Type MULTIVITAMIN (#THERAPEUTIC 1 cap PO QDAY #0 11/12/10 04/10/19 History VITAMINS) testosterone cypionate 200 mg/mL 350 mg IM Q2W #1 ml 11/22/18 04/10/19 Rx intramuscular oil sildenafil (antihypertensive) 0 PO PRN #100 tab 12/30/18 04/04/19 Rx [Revatio] bupropion HCl 150 mg tablet,12 hr 150 mg PO BID #180 tab 02/01/19 04/10/19 Rx sustained-release levothyroxine 100 mcg PO QAM #90 tab 02/01/19 04/10/19 Rx losartan [Cozaar] 50 mg PO QDAY #90 tab 02/01/19 04/10/19 Rx morphine 30 mg immediate release See Rx Instructions .ROUTE 04/03/19 04/10/19 Rx tablet .COMPLEX #120 tablet morphine 60 mg tablet,extended See Rx Instructions .ROUTE 04/03/19 04/10/19 Rx release .COMPLEX #120 tablet acyclovir [Zovirax] 200 mg PO DAILY 04/10/19 04/10/19 History tamsulosin [Flomax] 0.4 mg PO QDAY 04/10/19 04/10/19 History Allergies Allergy/AdvReac Type Severity Reaction Status Date / Time adhesive [ADHESIVE] Allergy Intermediate PAPER Verified 04/04/19 08:39 TAPE, RASH diclofenac [DICLOFENAC] Allergy Intermediate RED, ITCHY Verified 04/04/19 08:39 WELT benzalkonium chloride Allergy Mild RASH Verified 04/04/19 08:39 [From MERTHIOLATE (BENZALKONIUM)] tetracaine [TETRACAINE] Allergy Mild RASH Verified 04/04/19 08:39 tranilast [TRANILAST] Allergy Mild RASH Verified 04/04/19 08:39 triamcinolone [TRIAMCINOLONE] Allergy Mild RASH Verified 04/04/19 08:39 DMSO Allergy Mild RASH Uncoded 04/04/19 08:39 Medical History - Medical, Surgical, Family History Medical History: Medical History (Last Updated 04/10/19 @ 11:51 by Shirin Guallpa MD) Abnormal ultrasound of abdomen Gallstone History of atrial flutter Hypertension Surgical History: Surgical History (Last Updated 04/04/19 @ 09:33 by BRYAN Watson) History of cardiac radiofrequency ablation History of knee replacement Onset Date: 11/12/10 History of laparoscopic adjustable gastric banding Status post gastric banding surgery Status post laminectomy Onset Date: 1991 Family History: Family History Brother Bipolar disorder Father CVA (cerebral vascular accident) Diabetes mellitus Mother Diabetes mellitus Colitis - Social History Smoking Status: Former smoker (quitted 35 years ago.) Substance Use Type: does not use Alcohol Intake: never Review of Systems - Patient Self-Reported Symptoms SR Constitution: Weight loss/gain SR Gastrointestinal issues: Poor or no appetite, Abdominal pain SR Genitourinary issues: Frequent urination SR Musculoskeletal issues: Joint pain or swelling, Back or neck pain All systems PM: reviewed and no additional remarkable complaints except as stated Exam Vital signs: Vital Signs Temp Pulse Resp BP Pulse Ox 04/10/19 11:10 98.5 F 78 20 131/83 98 Intake and Output 04/09/19 04/10/19 04/10/19 23:59 07:59 15:59 Other: Weight 111.4 kg Patient Weight 04/10/19 23:59 Weight 111.4 kg - Constitutional positive no acute distress, positive obese, positive cooperative - Routine HEENT Exam Head: Present: normocephalic, atraumatic Eye: Present: EOMI, PERRL, normal accommodation. Absent: conjunctival icterus ENT: Present: mucous membranes moist - Routine Neck Exam Absent: lymphadenopathy, thyromegaly - Routine Chest/Breast/Axilla Exam Axillae: Absent: lymphadenopathy - Routine Respiratory Exam Present: Clear to auscultation bilaterally. Absent: wheezes - Routine Cardiovascular Exam Present: RRR, S1, S2. Absent: murmur, gallop, rubs - Routine Abdominal Exam Present: soft, tenderness (mild pain in the right upper quadrant and left lower quadrant.). Absent: distended, rebound, organomegaly Results - Labs Pending - Imaging Additional studies: Procedures ANESTH INJECT-SPIN CANAL (09/25/09) INJECT STEROID (09/25/09) Injection of anesthetic into peripheral nerve for analgesia (11/12/10) Injection of anesthetic into spinal canal for analgesia (11/07/10) Injection of other agent into spinal canal (11/07/10) Injection of steroid (11/07/10) SPINAL CANAL INJECT NEC (09/25/09) Total knee replacement (11/12/10) Assessment and Plan (1) Malignant neoplasm metastatic to liver with unknown primary site Overview: 64-year-old gentleman with newly found pancreatic mass and multiple liver metastasis and posterior wall stomach mass. I talked with the patient that the available information supports the diagnosis of pancreatic adenocarcinoma with metastasis to the liver as well as locoregional metastasis. However we do not have the tissue diagnosis yet. Other malignancies cannot be completely excluded including gastric cancer or colon cancer. On my physical examination, patient has left lower quadrant abdominal pain. Patient has never had a colonoscopy. Assessment: I talked with him and his that the very first step is to obtain a CT-guided biopsy of the liver lesion. I talked with them that the sample will be evaluated by our pathologist and I would recommend molecular testing. I said that the goal is trying to find out if his cancer has any actionable targets. I also talked with the patient that I will proceed with more complete staging which will include CT of the chest and abdomen pelvis with contrast as well as PET scan. I talked with the patient that PET scan cannot replace the high-resolution CT scan. Plan: 1. CBC, CMP, CEA, CA19-9, LDH 2. CT guided biopsy of liver lesion: OmniSeq Advance 3. CT CAP w/contrast 4. PET CT (pending tissue diagnosis) 5. [facility] Hereditary Panel 6. Surgical referral: EGD/C-scope, Port placement, consider Lap Band removal 7. RTC in 2 weeks for follow up visit.
--- NOTE | 2019-04-11 09:56 | ONC.SCHED ---
Patient was scheduled for his Chest/ Abd/ Pelvis with [facility] Patient is going to be contacted by [facility] to schedule hi Liver BX. Patient was referred to [facility] for Port Placement, Upper/Lower Endoscopy. Screening C Scope and possible lap band Removal. PET scan paperwork was given to Dr. Samuel to sign and Angelica hernandez also waiting for him to sign his chart notes
--- NOTE | 2019-04-11 10:03 | ONC.SCHED ---
My Risk Gentic Study was performed in Clinic
--- NOTE | 2019-04-19 13:31 | ONC.MSW ---
Description: CG Support, Resources Activity: Pt's , Janis came by and requested assistance and information about getting a Medical Marijuana Authorization Form. [employer]ICE completed the form and provided it for her. Discussed coping and adjustment to disease/impending treatment. She shares that this is the first day I haven't woken up and cried my eyes out. She and patient have begun juicing and are walking a few miles per day, and have had great support from friends and their advent. She feels that they are adjusting and are determined to maintain a positive focus. No further needs indicated at this time.
--- NOTE | 2019-04-20 15:55 | ONC.SCHED ---
Colonoscopy scheduled for 04/27/19; Port Placement 05/02/19 with [facility]
[2019-04-24 15:16] VITALS: BP 126/63; PULSE 94; RESP 18; TEMP 36.4; O2SAT 98
--- NOTE | 2019-04-24 15:20 | ONC.PN ---
PN -Subjective Interval history: Avtar Vyas is a 64 year old male. He had a history of morbid obesity and underwent laparoscopic banding in 2005. His weight decreased from 360 prior to the surgery to 240 after the surgery. Then his weight has gradually went up to 275 until about a month ago when he noticed weight loss again. He thought that probably is due to the laparoscopic banding. He was having problems eating. Sometimes could not get things down. Patient is complaining epigastric pain with radiating right straight to the back. The pain is about 5 to 6/10 in severity. For the past 1 month, patient lost about 15-20 lb. He was seen by Dr. Covington. On 04/04/2019 patient underwent abdominal complete ultrasound study. The study showed numerous masses in liver with hypoechoic halo, a 3 cm gallstone and gallbladder sludge. Pancreas was not well visualized due to overlying bowel gas. Spleen is in normal size. On 04/05/2019, he underwent CT abdomen wo/w contrast that showed a 6.5 x 4.6 cm pancreatic body/tail mass, a mass involving the posterior wall of the stomach which likely represents contiguous extension, and at least 8 hepatic metastatic lesions. 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 Incidental note was made of 2.6 cm sub solid pulmonary nodule in the extreme right lung base. In addition cholelithiasis was also noted. On 04/12/2019, patient underwent CT scan of the chest abdomen pelvis. 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 On 04/19/2019, patient underwent CT-guided biopsy of the liver lesions. However the final pathology is still pending at the time of today's encounter. Clinically, he reports some problems with swallowing and epigastric mild pain. No other new events. - Patient Self-Reported Symptoms SR Constitution: Weight loss/gain, Fatigue/Malaise SR respiratory issues: Cough SR Cardiovascular issues: Dizzy/lightheaded SR Gastrointestinal issues: Poor or no appetite SR Genitourinary issues: Frequent urination SR Musculoskeletal issues: Joint pain or swelling, Back or neck pain SR Neuro issues: Lightheaded/dizzy - Additional ROS All systems PM: reviewed and no additional remarkable complaints except as stated Home Medications and Allergies Home Medications Medication Instructions Recorded Confirmed Type axrfspox-owp-CY-lycopen-lutein 1 tab PO DAILY #0 11/12/10 04/24/19 History [Centrum Silver Ultra Men's] bupropion HCl 150 mg tablet,12 hr 150 mg PO BID #180 tab 02/01/19 04/24/19 Rx sustained-release levothyroxine 100 mcg PO QAM #90 tab 02/01/19 04/24/19 Rx losartan [Cozaar] 50 mg PO QDAY #90 tab 02/01/19 04/24/19 Rx morphine 60 mg tablet,extended See Rx Instructions .ROUTE 04/03/19 04/24/19 Rx release .COMPLEX #120 tablet tamsulosin [Flomax] 0.4 mg PO QDAY 04/10/19 04/24/19 History acyclovir 200 mg capsule 200 mg PO DAILY #90 cap 04/14/19 04/24/19 Rx testosterone cypionate 200 mg/mL 350 mg IM Q2W #1 ml 04/17/19 04/24/19 Rx intramuscular oil morphine 30 mg PO Q4-6H PRN 04/19/19 04/24/19 History sildenafil (antihypertensive) 20 mg PO PRN PRN 04/19/19 04/24/19 History [Revatio] Allergies Allergy/AdvReac Type Severity Reaction Status Date / Time adhesive [ADHESIVE] Allergy Intermediate PAPER Verified 04/19/19 12:19 TAPE, RASH diclofenac [DICLOFENAC] Allergy Intermediate RED, ITCHY Verified 04/19/19 12:19 WELT benzalkonium chloride Allergy Mild RASH Verified 04/19/19 12:19 [From MERTHIOLATE (BENZALKONIUM)] tetracaine [TETRACAINE] Allergy Mild RASH Verified 04/19/19 12:19 tranilast [TRANILAST] Allergy Mild RASH Verified 04/19/19 12:19 triamcinolone [TRIAMCINOLONE] Allergy Mild RASH Verified 04/19/19 12:19 DMSO Allergy Mild RASH Uncoded 04/04/19 08:39 Exam Vital signs: Vital Signs Temp Pulse Resp BP Pulse Ox 04/24/19 15:16 97.5 F L 94 H 18 126/63 98 Intake and Output 04/23/19 04/24/19 04/24/19 23:59 07:59 15:59 Other: Weight 106.8 kg Patient Weight 04/24/19 23:59 Weight 106.8 kg - Constitutional positive no acute distress, positive obese, positive cooperative - Routine HEENT Exam Head: Present: normocephalic, atraumatic Eye: Present: EOMI, PERRL, normal accommodation. Absent: conjunctival icterus ENT: Present: mucous membranes moist - Routine Neck Exam Present: supple. Absent: lymphadenopathy, thyromegaly - Routine Chest/Breast/Axilla Exam Axillae: Absent: lymphadenopathy - Routine Respiratory Exam Present: Clear to auscultation bilaterally. Absent: wheezes - Routine Cardiovascular Exam Present: RRR, S1, S2. Absent: murmur, gallop, rubs - Routine Abdominal Exam Present: soft. Absent: tenderness, distended, organomegaly - Routine Extremities Exam Absent: edema - Routine Neurological Exam Present: alert, oriented X3, CN II-XII intact. Absent: sensory deficit, motor deficit - Routine Psychiatric Exam Present: normal affect, normal thought process, cooperative, good insight, good judgment. Absent: depressed Results - Imaging Additional studies: Procedures ANESTH INJECT-SPIN CANAL (09/25/09) INJECT STEROID (09/25/09) Injection of anesthetic into peripheral nerve for analgesia (11/12/10) Injection of anesthetic into spinal canal for analgesia (11/07/10) Injection of other agent into spinal canal (11/07/10) Injection of steroid (11/07/10) SPINAL CANAL INJECT NEC (09/25/09) Total knee replacement (11/12/10) Assessment and Plan (1) Malignant neoplasm metastatic to liver with unknown primary site Overview: 64-year-old gentleman with newly found pancreatic mass and multiple liver metastasis and posterior wall stomach mass. I talked with the patient that the available information supports the diagnosis of pancreatic adenocarcinoma with metastasis to the liver as well as locoregional metastasis. However we do not have the tissue diagnosis yet. Other malignancies cannot be completely excluded including gastric cancer or colon cancer. On my physical examination, patient has left lower quadrant abdominal pain. Patient has never had a colonoscopy. Assessment: Patient has already had the CT-guided biopsy of the liver lesion. However the pathology is still pending. The tumor marker exam showed that the pancreatic cancer marker CA 19-9 is not increased. Instead patient has a significantly elevated CEA level. I talked with the patient and patient's that this makes pancreatic cancer less likely. The elevated CEA is more consistent with gastrointestinal colon cancer. There are other tests and examination ongoing including upper and lower endoscopy, PET scan, and surgical consult visit. I will tentatively schedule the patient to come back to see me in about 2 weeks for further discussion. I mentioned about possible port placement. However patient is adamant that he would like to wait until he is sure about the diagnosis and he likes to talk with his and make further decisions. Plan: 1. Awaiting pathology of liver biopsy: OmniSeq Advance 2. Awaiting PET CT (pending tissue diagnosis) 3. [facility] Hereditary Panel ? 4. Awaiting EGD/C-scope 5. Awaiting surgical visit for Port placement, consider Lap Band removal 6. RTC in 2 weeks for follow up visit.
--- NOTE | 2019-05-08 10:42 | P.PNONC_ITS ---
PN -Subjective Interval history: ID/CC 64 year old gastric and pancreatic tail mass of unknown etiology. . HPI Avtar Vyas is a 64 year old male. He had a history of morbid obesity and underwent laparoscopic banding in 2005. His weight decreased from 360 prior to the surgery to 240 after the surgery. Then his weight has gradually went up to 275 until about a month ago when he noticed weight loss again. He thought that probably is due to the laparoscopic banding. He was having problems eating. Sometimes could not get things down. Patient was complaining epigastric pain with radiating right straight to the back. The pain was about 5 to 6/10 in severity. During the one month prior to here, patient lost about 15-20 lb. He was seen by Dr. Covington. On 04/04/2019 patient underwent abdominal complete ultrasound study. The study showed numerous masses in liver with hypoechoic guevara lo, a 3 cm gallstone and gallbladder sludge. Pancreas was not well visualized due to overlying bowel gas. Spleen was in normal size. On 04/05/2019, he underwent CT abdomen wo/w contrast that showed a 6.5 x 4.6 cm pancreatic body/tail mass, a mass involving the posterior wall of the stomach which likely represents contiguous extension, and at least 8 hepatic metastatic lesions. 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 Incidental note was made of 2.6 cm sub solid pulmonary nodule in the extreme right lung base. In addition cholelithiasis was also noted. On 04/12/2019, patient underwent CT scan of the chest abdomen pelvis. 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 On 04/19/2019, patient underwent CT-guided biopsy of the liver lesions. Cassandraleonard Nova presents here today to review the pathology reports of the liver biopsy. Suppress any, liver biopsy showed liver parenchyma with features of Colace stasis. No evidence of neoplasm. On 04/27/2019, patient underwent EGD and colonoscopy. Upper endoscopy showed and obvious gastric mass at the cardia. The mass appeared to be several cm, was friable in its appearance. The gastric mass was biopsied. Colonoscopy was without any abnormal findings. The pathology from the biopsy of the gastric mass showed no evidence of malignant neoplasia from the gastric mass. On 04/26/2019, patient underwent PET scan. It showed a 5.2 x 6.9 x 3.7 cm the chronic pancreatic tail mass with moderately increased uptake, and intensely hypermetabolic mass involving inferior wall of the lesser curvature of the stomach, and mild to moderately hypermetabolic lesions in liver parenchyma. Previously described mixed density nodule in anterior right lower lobe near right lung base showed no significant increased metabolic activity, previously described 7 mm solid-appearing nodule in posterior right lung base showed no increased metabolic activity, and the right paratracheal lymph node showed no significant increased mai uptake, and previously described enlarged lymph node just to the left of the celiac trunk and just medial to the pancreatic tail mass showed no significant increased uptake. There was mixed lytic and sclerotic lesion involving left iliac bone adjacent to left sacroiliac joint with no increased uptake. - Patient Self-Reported Symptoms SR Constitution: Weight loss/gain, Fatigue/Malaise SR respiratory issues: Cough SR Cardiovascular issues: Dizzy/lightheaded SR Gastrointestinal issues: Poor or no appetite SR Genitourinary issues: Frequent urination SR Musculoskeletal issues: Joint pain or swelling, Back or neck pain SR Neuro issues: Lightheaded/dizzy - Additional ROS All systems PM: reviewed and no additional remarkable complaints except as stated Home Medications and Allergies Home Medications Medication Instructions Recorded Confirmed Type Francia Mccormack Men's 1 tab PO DAILY #0 11/12/10 05/08/19 History bupropion HCl 150 mg tablet,12 hr 150 mg PO BID #180 tab 02/01/19 05/08/19 Rx sustained-release levothyroxine 100 mcg PO QAM #90 tab 02/01/19 05/08/19 Rx losartan [Cozaar] 50 mg PO QDAY #90 tab 02/01/19 05/08/19 Rx tamsulosin [Flomax] 0.4 mg PO QDAY 04/10/19 05/08/19 History acyclovir 200 mg capsule 200 mg PO DAILY #90 cap 04/14/19 05/08/19 Rx testosterone cypionate 200 mg/mL 350 mg IM Q2W #1 ml 04/17/19 05/08/19 Rx intramuscular oil sildenafil (antihypertensive) 20 mg PO PRN PRN 04/19/19 05/08/19 History [Revatio] omeprazole 40 mg capsule,delayed 40 mg PO DAILY #90 cap 04/27/19 05/08/19 Rx release morphine 60 mg tablet,extended See Rx Instructions .ROUTE 05/01/19 05/08/19 Rx release .COMPLEX #120 tablet oxycodone 5 mg tablet See Rx Instructions PO Q6H PRN 05/08/19 Rx #120 tab Allergies Allergy/AdvReac Type Severity Reaction Status Date / Time adhesive [ADHESIVE] Allergy Intermediate PAPER Verified 05/08/19 15:20 TAPE, RASH diclofenac [DICLOFENAC] Allergy Intermediate RED, ITCHY Verified 05/08/19 15:20 WELT benzalkonium chloride Allergy Mild RASH Verified 05/08/19 15:20 [From MERTHIOLATE (BENZALKONIUM)] tetracaine [TETRACAINE] Allergy Mild RASH Verified 05/08/19 15:20 tranilast [TRANILAST] Allergy Mild RASH Verified 05/08/19 15:20 triamcinolone [TRIAMCINOLONE] Allergy Mild RASH Verified 05/08/19 15:20 DMSO Allergy Mild RASH Uncoded 05/08/19 15:20 Exam Vital signs: Last Vital Signs Temp 99.2 F 05/08/19 11:02 Pulse 93 H 05/08/19 11:02 Resp 18 05/08/19 11:02 BP 138/87 05/08/19 11:02 Pulse Ox 98 05/08/19 11:02 - Constitutional positive no acute distress, positive obese, positive cooperative - Routine HEENT Exam Head: Present: normocephalic, atraumatic Eye: Present: EOMI, PERRL, normal accommodation. Absent: conjunctival icterus ENT: Present: mucous membranes moist - Routine Neck Exam Present: supple. Absent: lymphadenopathy, thyromegaly - Routine Respiratory Exam Present: Clear to auscultation bilaterally. Absent: wheezes - Routine Cardiovascular Exam Present: RRR, S1, S2. Absent: murmur, gallop, rubs - Routine Abdominal Exam Present: soft, tenderness. Absent: distended, organomegaly - Routine Extremities Exam Absent: edema - Routine Neurological Exam Present: alert, oriented X3, CN II-XII intact. Absent: sensory deficit, motor deficit - Routine Psychiatric Exam Present: normal affect Results - Imaging Additional studies: Procedures ANESTH INJECT-SPIN CANAL (09/25/09) INJECT STEROID (09/25/09) Injection of anesthetic into peripheral nerve for analgesia (11/12/10) Injection of anesthetic into spinal canal for analgesia (11/07/10) Injection of other agent into spinal canal (11/07/10) Injection of steroid (11/07/10) SPINAL CANAL INJECT NEC (09/25/09) Total knee replacement (11/12/10) Assessment and Plan (1) Malignant neoplasm metastatic to liver with unknown primary site Overview: 64-year-old gentleman with newly found pancreatic mass and multiple liver metastasis and posterior wall stomach mass. Clinically he presented with epigastric pain with radiation to the back. Assessment: Today, I reviewed the pathology from the liver biopsy as well as the upper endoscopy biopsy of the gastric mass. Both biopsies showed no evidence of malignancy. However patient's laboratory tests showed that the CEA level is in the 100s, suggests possible colon cancer. I also reviewed the PET scan results with the patient and the images with the patient. There is clear I hypermetabolic lesion in the stomach. However the tail mass at the pancreas is not hip metabolically active. I talked with him that at this moment, we do not know exactly what type of cancer we are dealing with. Patient and his have talked about seeking second opinion. I talked with him that I support their decision. I will refer the patient to [facility] for further evaluation. Patient voiced understanding. Plan: 1. Referral to [facility] 2. [facility] 06/12/2019 for follow up visit.
[2019-05-08 11:02] VITALS: BP 138/87; PULSE 93; RESP 18; TEMP 37.3; O2SAT 98
--- NOTE | 2019-05-08 14:07 | ONC.MSW ---
Description: Resources, Support Activity: Met with pt and spouse prior to their provider appt. to answer questions about insurance and financial concerns. Pt has straight Medicare, and is concerned about potential out of pocket for chemotherapy medications which will soon be prescribed. SITE DIRECTOR assured pt that we can work together to see if there is foundation funding available to assist with any co-pay assistance that he may need. SITE DIRECTOR also encouraged pt/ to contact [facility] to schedule an appt. to discuss options for Medicare advantage plans or Medigap plans that will better cover his impending cancer treatment medical expenses; SITE DIRECTOR provided [facility] contact info. Spouse, Janis, expresses having difficulty intermittently with coping with all the up's and down's over this last month since his diagnosis. SITE DIRECTOR offered encouragement and coping support for moving forward, and assured pt/spouse that often people feel a lot less anxious and more into a routine once treatment has started.
--- NOTE | 2019-05-22 11:01 | ONC.SCHED ---
I let [facility] know that patient does not need to be on there schedule
--- NOTE | 2019-05-23 09:10 | ONC.MSW ---
*Sent bereavement card.
== END ==
PROVIDERS: Family Provider Family Medicine; PCP Family Medicine; Visit Provider Internal Medicine Hematology & Oncology
DX: C78.7 Secondary malignant neoplasm of liver and intrahepatic bile duct (principal); C80.1 Malignant (primary) neoplasm, unspecified; R10.32 Left lower quadrant pain; K86.9 Disease of pancreas, unspecified; K31.9 Disease of stomach and duodenum, unspecified; R97.0 Elevated carcinoembryonic antigen [CEA]; E66.01 Morbid (severe) obesity due to excess calories; Z98.84 Bariatric surgery status
CPT/HCPCS: 99204; 99214